=== PATIENT | male | born 1985 | race Caucasian/White ===

== ENCOUNTER 2017-03-05 00:39 | Emergency (ER) | payer OTHER ==
[~2017-03-05] VITALS: Ht 177.8 cm; Wt 78.4 kg
[2017-03-05 00:49] VITALS: TEMP 36.6; Ht 177.8 cm; Wt 78.4 kg
[2017-03-05 00:55] VITALS: O2SAT 97
--- NOTE | 2017-03-05 01:19 | EMERGENCY ROOM VISIT NOTE ---
History Report prepared by Chauncey: Hunter Quiñones Under the Supervision of: Dr. Sis Brock D.O. First contact with patient: 00:41 Chief Complaint: ALLERGIC REACTION Stated Complaint: ALLERGIC REACTION Nursing Triage Summary: arrived via amb with als from [facility]. pt states known allergy to ibuprofen. c/o sinus pain earlier and staff gave him advil sinus at 2100 and at 2230 started with shortness of breath and wheezing. pt had 2 albuterol nebs and a duo neb by medic 125 mg iv solumedrol and 50 mg iv benadryl. History of Present Illness The patient is a 31 year old male who presents to the Emergency Room via ALS from [facility] with complaints of an allergic reaction occurring today. The patient has a known allergy to Ibuprofen but has never had to use an EpiPen. The patient has been having sinus pain, nasal congestion, runny nose, and a cough. The staff gave him Advil sinus about 3 and a half hours ago. About an hour later, he started having severe shortness of breath and wheezing. The patient had 2 vomiting episodes. He received 2 Albuterol, Nebulizer treatment, DuoNeb treatment. He also received 125 mg Solu-Medrol and 50 mg Benadryl. He currently reports improvement in his symptoms. He currently complains of a headache and chest heaviness. He currently denies any difficulty breathing. He denies fevers, chills, abdominal pain, or any other complaints. Source of History: patient Onset: today Position: other (global) Quality: other (allergic reaction) Timing: other (improving) Modifying Factors (Relieving): other (2 Albuterol, Nebulizer treatment, DuoNeb treatment, 125 mg Solu-Medrol and 50 mg Benadryl) Associated Symptoms: + headache, + SOB, + vomiting, No fevers, No chills, No abdominal pain Review of Systems See HPI for pertinent positives & negatives. A total of 10 systems reviewed and were otherwise negative. Past Medical & Surgical Medical Problems: (1) Ibuprofen adverse reaction Family History Patient reports no known family medical history. Social History Smoking Status: Never Smoker Marital Status: Occupation Status: unemployed Current/Historical Medications Scheduled Cyanocobalamin (Vitamin B12), 1,000 MCG PO DAILY Fluticasone Propionate (Nasal) (Flonase Allergy Relief), 1 SPRAY DIMAS DAILY Loratadine (Claritin), 10 MG PO DAILY Multivitamin (Multivitamin), 1 TAB PO DAILY Scheduled PRN Diphenhydramine Hcl (Benadryl Allergy), 1-2 CAP PO Q6 PRN for ALLERGIES Doxepin (Sinequan), 50-100 MG PO HS PRN for Insomnia Allergies Coded Allergies: Ibuprofen (Verified Allergy, Severe, resp diff, 03/05/17) Physical Exam Vital Signs Date Time Temp Pulse Resp B/P (MAP) Pulse Ox O2 Delivery O2 Flow Rate FiO2 03/05/17 02:45 86 18 122/80 98 Room Air 03/05/17 01:48 90 18 118/71 96 Room Air 03/05/17 00:55 97 Room Air 03/05/17 00:49 36.6 98 20 127/93 97 Room Air 03/05/17 00:49 97 Room Air 03/05/17 00:47 95 Physical Exam HEENT: Head - normocephalic and atraumatic Pupils are equal, round, and reactive to light. Extraocular eye muscles are intact, and sclera are anicteric. Nose - moist nasal mucosa without discharge. Mouth - moist buccal mucosa. Oropharynx is nonerythematous and there is no tonsillar exudate or edema noted. Neck: Supple; no JVD, nuchal rigidity, cervical lymphadenopathy. Heart: Tachycardic rate and regular rhythm. There is a normal S1 and S2 with no murmurs, clicks, or gallops appreciated. Lungs: Expiratory wheezing at the right lung base. Abdomen: Soft, completely nontender, nondistended, with good bowel sounds. There are no palpable pulsatile masses or hepatosplenomegaly. There is no guarding, rigidity, or rebound noted. Extremities: No evidence of cyanosis, clubbing, or edema. There are easily palpable peripheral pulses. Skin: warm and dry with good turgor and no rashes. Medical Decision & Procedures ECG Indication: SOB/dyspnea, other (Allergic reaction) Rate (beats per minute): 94 Rhythm: normal sinus Findings: no acute ischemic change, no ectopy ED Course 0041: Past medical records reviewed. The patient was evaluated in room A11B. A complete history and physical exam was performed. He was observing the teletypesetter monitor and pulse oximeter. 0151: The patient is sound asleep. His vitals are stable. 0240: The patient had 3-4 minutes of chest discomfort but it resolved when he laid back. I discussed findings and results with him. He verbalized agreement of the treatment plan. He was discharged home. Medical Decision The patient presents to the Emergency Room with complaints of allergic reaction. Differential diagnosis includes but is not limited to allergic reaction, drug reaction, anaphylaxis. I attest that I have personally reviewed the patient's current medication list. Blood Pressure Screening: Patient was found to have a slightly elevated blood pressure due to circumstances. I do not believe that the patient requires hypertension monitoring. This is a 31-year-old male patient who has a known allergy to ibuprofen. Unfortunately, the PATIENT TRANSPORTER at the rehabilitation facility where he resides gave him 2 Advil sinus tabs. The patient immediately began to have difficulty breathing. The patient was transferred by EMS here to the emergency department. In route, the patient received IV Solu-Medrol, DuoNeb treatment, and IV Benadryl. By the time he reached our emergency department, the patient was feeling much better. He remained hemodynamically stable while here in the emergency department. Impression Primary Impression: Allergic reaction Scribe Attestation The scribe's documentation has been prepared under my direction and personally reviewed by me in its entirety. I confirm that the note above accurately reflects all work, treatment, procedures, and medical decision making performed by me. Departure Information Dispostion Home / Self-Care Referrals No Doctor Assigned Forms HOME CARE DOCUMENTATION FORM, IMPORTANT VISIT INFORMATION Patient Instructions My [facility] Additional Instructions Avoid any form of Ibuprofen, Advil, Motrin or Aleve. If you have further symptoms of allergic reaction, you may take Benadryl - 50mg every 6 hours Problem Qualifiers Primary Impression: Allergic reaction Encounter type: initial encounter Qualified Codes: T78.40XA - Allergy, unspecified, initial encounter
[2017-03-05] MEDS ORDERED: MULT-506 PO (01:49)
[2017-03-05] MEDS ORDERED: FLUT0.15 NAE (01:49)
[2017-03-05] MEDS ORDERED: CLR10 PO (01:50)
[2017-03-05] MEDS ORDERED: CYAN100020 PO (01:50)
[2017-03-05] MEDS ORDERED: DIPH25CA65 PO (01:51)
[2017-03-05] MEDS ORDERED: DOXE50CA3 PO (01:53)
[2017-03-05 02:45] VITALS: BP 122/80; PULSE 86; O2SAT 98
== END 2017-03-05 03:00 | disposition home or self-care (01) ==
LOC: EDBD 00:39 → C.EDA 00:42
DX: T78.40XA Allergy, unspecified, initial encounter (principal); X58.XXXA Exposure to other specified factors, initial encounter; Z88.6 Allergy status to analgesic agent